=== PATIENT | male | born 1935 | race Caucasian/White ===

== ENCOUNTER 2016-09-10 19:26 | Emergency (ER) | payer MEDICARE, OTHER ==
--- NOTE | 2016-09-10 20:28 | ER Document Report ---
ED Seizure - General Mode of Arrival: Medic Information source: Relative - patient's son via phone, Friend Cannot obtain history due to: Other - unresponsive TRAVEL OUTSIDE OF THE [place] IN LAST 30 DAYS: No - HPI Patient complains to provider of: No: History of seizures <CHERRY BALL - Last Filed: 09/11/16 04:20> <JENNIFER ESCOBAR - Last Filed: 09/11/16 04:31> - General Stated Complaint: PROBABLE SEIZURES Time Seen by Provider: 09/10/16 20:13 Notes: Patient is an 81 year old male presenting to the emergency department for a possible seizure and unresponsiveness. Patient had generalized shaking and was lowered to the ground. Patient became unresponsive and CPR was started by a bystander. EMS arrived to the patient being unresponsive but with pulses. Patient had v- tach in the ambulance and was given lidocaine. Patient presents to the ED unresponsive. Per friend the patient had a stent placed 1 week ago and is supposed to have a valve replacement in 2 weeks. Patient's manager building is Dr. Betty Cobb and his procedures have been completed and scheduled at [facility] in [facility]. Patient also has a history of stroke and is on plavix. ( CHERRY BALL) Past Medical History - General Information source: Relative - son via phone, Friend Cannot obtain history due to: Other - unresponsive - Social History Smoking Status: Unknown if Ever Smoked Family History: None Neurological Medical History: Reports: Hx Cerebrovascular Accident Past Surgical History: Reports: Hx Coronary Artery Bypass Graft, Hx Coronary Stent <CHERRY BALL - Last Filed: 09/11/16 04:20> - Past Medical History Cardiac Medical History: Reports: Hx Coronary Artery Disease, Hx Hypercholesterolemia <JENNIFER ESCOBAR - Last Filed: 09/11/16 04:31> Review of Systems - Review of Systems -: Yes ROS unobtainable due to patient's medical condition <CHERRY BALL - Last Filed: 09/11/16 04:20> - Review of Systems -: Yes ROS unobtainable due to patient's medical condition <JENNIFER ESCOBAR - Last Filed: 09/11/16 04:31> Physical Exam - Vital signs Interpretation: Hypertensive - 210/111 at 19:30 <CHERRY BALL - Last Filed: 09/11/16 04:20> - Vital signs Interpretation: Hypertensive - General General appearance: Unresponsive In distress: Severe - HEENT Head: Normocephalic, Other - Superficial laceration to left cheek Eyes: Normal Conjunctiva: Normal Cornea: Normal Extraocular movements intact: Yes Eyelashes: Normal Pupils: PERRL Mouth/Lips: Normal Mucous membranes: Normal Pharynx: Normal Neck: Normal - Respiratory Respiratory status: No respiratory distress Breath sounds: Normal - Cardiovascular Rhythm: Regular Murmur: Yes - Abdominal Inspection: Normal Distension: No distension - Back Back: Normal - Extremities General upper extremity: Normal inspection, Normal ROM, Normal strength General lower extremity: Normal inspection, Normal ROM, Normal strength - Neurological Audrey Coma Scale Eye Opening: None [place] Coma Scale Verbal: Incomprehensible Audrey Coma Scale Motor: Withdraws to Pain Audrey Coma Scale Total: 7 Motor strength normal: LUE, RUE, LLE, RLE <JENNIFER ESCOBAR - Last Filed: 09/11/16 04:31> - Vital signs Vitals: Temp Resp Pulse Ox 97.1 F 23 H 99 09/10/16 21:28 09/10/16 21:28 09/10/16 21:28 Temp Resp Pulse Ox 97.1 F 23 H 99 09/10/16 21:28 09/10/16 21:28 09/10/16 21:28 (CHERRY BALL) Course - Laboratory Result Diagrams: 09/10/16 19:33 09/10/16 19:33 - Consults Dr. Prater Time consulted: 22:00 <CHERRY BALL - Last Filed: 09/11/16 04:20> - Laboratory Result Diagrams: 09/10/16 19:33 09/10/16 19:33 - Diagnostic Test Radiology reviewed: Image reviewed - ET tube high. Tube advanced 4 cm. Repeat imaging with improvement - EKG Interpretation by Wi EKG shows normal: Sinus rhythm Rhythm: Other - first degree block, DC 248 <JENNIFER ESCOBAR - Last Filed: 09/11/16 04:31> - Re-evaluation Re-evalutation: 09/10/16 19:38 Spoke with friend about patient's medical history and current unresponsive state. 09/10/16 19:41 Spoke to patient's son, Honorio Mitchell, via phone about patient's medical history and current unresponsive state. 09/10/16 19:50 Intubated the patient. 09/10/16 19:56 Spoke with friends about patient. He takes plavix, lisinopril 20 mg, Bumetanide 0.5 mg, atenolol 25 mg, clonidine 0.1 BID, simvastatin 20 mg, and aspirin. ( CHERRY BALL) 09/10/16 22:53 Patient is an 81-year-old male who presents unresponsive. Patient apparently had an episode of V. tach was EMS prior to arrival for which she was given lidocaine. Patient has no acute findings on head CT. Chest x-ray within normal limits. Blood work was some mild renal insufficiency. Patient does have a first-degree block on EKG. Concern is that the patient did have a episode of ventricular tachycardia prior to arrival. Troponin is not elevated yet. Patient has been given labetalol here in the emergency department for a very high blood pressure and concern about stroke or seizure at the time. Patient was discussed with Dr. Prater at [facility] and will be transferred there via helicopter for further evaluation by cardiology. This is been discussed with the patient's friend who is present at bedside and is relating all information to son. Patient is stable at the time of transfer (JENNIFER ESCOBAR) - Vital Signs Vital signs: Temp Pulse Resp BP Pulse Ox 97.8 F 15 119/64 99 09/10/16 22:46 09/10/16 22:46 09/10/16 22:45 09/10/16 22:46 - Laboratory Laboratory results interpreted by mi: 09/10/16 09/10/16 09/10/16 19:33 19:33 21:15 BUN 30 H Creatinine 1.75 H Est GFR ( Amer) 46 L Est GFR (Non-Af Amer) 38 L Glucose 135 H Calcium 10.7 H Direct Bilirubin 0.6 H NT-Pro-B Natriuret Pep 1350 H Urine Protein 100 H Urine Ascorbic Acid 40 H - Consults Dr. Prater Reason for consultation: 09/10/16 22:[address] Prater at [facility] for possible transfer. Patient will be transferred to [facility]. (CHERRY BALL) Procedures - Intubation Orotracheal Time of Intubation: 19:50 Airway evaluation: Normal anatomy Mallampati Classification: Class 1 Medications: Vecuronium, Other - Ativan Intubation method: Orotracheal Blade type: Jay Blade size: 4 Equipment used: Glidescope ETT size: 8.0 ETT secured at: Teeth ETT secured at (cm): 20 - adjusted after x-ray to 24 at the teeth (21:33) Breath Sounds after Intubation: Equal End tidal CO2 confirmed: Yes Ventilator settings: PS Post Intubation Xray: Yes Intubation Complications: No complications <CHERRY BALL - Last Filed: 09/11/16 04:20> Critical Care Note - Critical Care Note Total time excluding time spent on procedures (mins): 120 - Evaluation and management of unresponsive patient, multiple re-evaluations, management of intubated patient, coordination with tertiary care facility, coordination of transfer, counseling of family, multiple reevaluation <JENNIFER ESCOBAR - Last Filed: 09/11/16 04:31> Discharge <CHERRY BALL - Last Filed: 09/11/16 04:20> <JENNIFER ESCOBAR - Last Filed: 09/11/16 04:31> - Discharge Clinical Impression: Unresponsiveness, Ventricular tachycardia, First degree atrioventricular block Condition: Stable Disposition: [facility] Scribe Attestation: 09/11/16 04:31 I personally performed the services described in the documentation, reviewed and edited the documentation which was dictated to the scribe in my presence, and it accurately records my words and actions. (JENNIFER ESCOBAR) Scribe Documentation - Scribe Written by Ashly:: Ashly Cai 09/10/16 23:14 acting as scribe for :: Anali <CHERRY BALL - Last Filed: 09/11/16 04:20>
--- NOTE | 2016-09-10 20:54 | EKG REPORT ---
SEVERITY:- ABNORMAL ECG - SINUS RHYTHM FIRST DEGREE AV BLOCK ABNRM R PROG, CONSIDER ASMI OR LEAD PLACEMENT BORDERLINE T WAVE ABNORMALITIES : Confirmed by: Indira Calyton MD 10-Sep-2016 20:53:54
[2016-09-10] MEDS ORDERED: LABETALOL HCL INJ 20 MG/4 ML DISP.SYRIN IV ONE (21:06)
[2016-09-10] MEDS ORDERED: PROPOFOL 100 ML IV PRN (21:07)
[2016-09-10] MEDS ORDERED: VECURONIUM BROMIDE INJ 10 MG VIAL IV ONE (21:07)
[2016-09-10] MEDS ORDERED: LORAZEPAM INJ 2 MG/1 ML VIAL IV ONE (21:10)
[2016-09-10 21:11] LABS: VENOUS BLOOD BASE EXCESS 2.4 mmol/L; VENOUS BLOOD HCO3 28.6 mmol/L (20-32); VENOUS BLOOD PCO2 49.7 mmHg (35-63); VENOUS BLOOD PH 7.38 (7.30-7.42)
[2016-09-10 21:32] LABS: ALANINE AMINOTRANSFERASE 37 U/L (21-72); ALBUMIN 4.2 g/dL (3.5-5.0); ALKALINE PHOSPHATASE 109 U/L (38-126); ANION GAP 13 (5-19); ASPARTATE AMINO TRANSFERASE 40 U/L (17-59); BILIRUBIN,DIRECT 0.6 mg/dL (0.0-0.4); BLOOD UREA NITROGEN 30 mg/dL (7-20); CALCIUM 10.7 mg/dL (8.4-10.2); CARBON DIOXIDE 26 mmol/L (22-30); CHLORIDE 102 mmol/L (98-107); CREATINE KINASE 89 U/L (55-170); CREATININE RESULT 1.75 mg/dL (0.52-1.25); GLUCOSE 135 mg/dL (75-110); SODIUM 140.9 mmol/L (137-145)
[2016-09-10 21:43] LABS: CREATINE KINASE MB 2.53 ng/mL (<4.55); TROPONIN I 0.027 ng/mL
[2016-09-10 22:57] LABS: AMORPHOUS SEDIMENT,URINE TRACE /HPF; APPEARANCE,URINE SLIGHTLY-CLOUDY; BILIRUBIN,URINE NEGATIVE (NEGATIVE); GLUCOSE, URINE NEGATIVE (NEGATIVE); KETONES,URINE NEGATIVE (NEGATIVE); LEUKOCYTE ESTERASE,URINE NEGATIVE (NEGATIVE); NITRITE,URINE NEGATIVE (NEGATIVE); PROTEIN,URINE 100 mg/dL (NEGATIVE); URINE SPECIFIC GRAVITY 1.016; UROBILINOGEN,URINE NEGATIVE mg/dL (<2.0)
[2016-09-11 04:39] VITALS: BP 153/69
[2016-09-11 08:58] LABS: ABSOLUTE BASOPHILS # (AUTO) 0.1 10^3/uL (0.0-0.2); ABSOLUTE EOSINOPHILS # (AUTO) 0.5 10^3/uL (0.0-0.6); ABSOLUTE MONOCYTES (AUTO) 1.2 10^3/uL (0.1-1.4); ABSOLUTE NEUT (AUTO) 7.8 10^3/uL (1.7-8.2); EOSINOPHILS % (AUTO) 3.5 % (0-6); HEMATOCRIT 51.3 % (37.9-51.0); HEMOGLOBIN 16.2 g/dL (13.5-17.0); HGB HCT DIFFERENCE -2.7; LYMPHOCYTES % (AUTO) 29.4 % (13-45); MEAN CORPUSCULAR HEMOGLOBIN 30.6 pg (27.0-33.4); MEAN CORPUSCULAR HGB CONC 31.6 g/dL (32.0-36.0); MEAN CORPUSCULAR VOLUME 97 fl (80-97); RED CELL DISTRIBUTION WIDTH 17.1 % (11.5-14.0); SEGMENTED NEUTROPHILS % (AUTO) 57.1 % (42-78); WHITE BLOOD COUNT 13.6 10^3/uL (4.0-10.5)
[2016-09-11 16:18] LABS: PARTIAL THROMBOPLASTIN TIME 35.3 SEC (23.5-35.8); PROTHROMBIN TIME 12.7 SEC (11.4-15.4)
== END 2016-09-10 22:58 | disposition short-term general hospital (02) ==
LOC: ER 19:26
PROC: 0BH17EZ Insertion of Endotracheal Airway into Trachea, Via Natural or Artificial Opening (ICD-10-PCS; principal; 2016-09-10)
DX: R56.9 Unspecified convulsions (principal); I47.2 Ventricular tachycardia; I44.0 Atrioventricular block, first degree; S01.412A Laceration without foreign body of left cheek and temporomandibular area, initial encounter; X58.XXXA Exposure to other specified factors, initial encounter; I25.10 Atherosclerotic heart disease of native coronary artery without angina pectoris; E78.00 Pure hypercholesterolemia, unspecified; Z86.73 Personal history of transient ischemic attack (TIA), and cerebral infarction without residual deficits; Z95.1 Presence of aortocoronary bypass graft; Z79.02 Long term (current) use of antithrombotics/antiplatelets; Z79.82 Long term (current) use of aspirin
CPT/HCPCS: 93005; 99291; 99292; 51702; 36415; 82553; 82550; 80156; 85025; 85610; 85730; 80053; 81001; 84484; 82803; 83880; 71010; 70450; 93010; 31500; J2704